=== PATIENT | female | born 1980 | race Caucasian/White ===

== ENCOUNTER 2017-02-06 08:57 | Emergency (ER) | payer MEDICAID ==
[~2017-02-06] VITALS: Ht 157.5 cm; Wt 118.8 kg
[2017-02-06 09:59] LABS: BASOPHIL % 0.3 % (0-2); PLATELET COUNT 175 x10^3mcL (130-400)
[2017-02-06 10:36] LABS: UA SPECIFIC GRAVITY >=1.030 (1.005-1.035); microscopic required? YES
[2017-02-06 10:37] LABS: urine erythrocyte 1+ (NEGATIVE)
[2017-02-06 10:52] LABS: CALCIUM 8.7 mg/dL (8.5-10.1); CARBON DIOXIDE 26.8 mmol/L (21-32); CHLORIDE SERUM 106 mmol/L (98-107); CREATININE SERUM 0.5 mg/dL (0.6-1.0); GFR1 > 60 mL/min; GLUCOSE SERUM 88 mg/dL (74-106); POTASSIUM SERUM 3.4 mmol/L (3.5-5.1); SODIUM SERUM 139 mmol/L (136-145)
[2017-02-06 10:56] LABS: ALBUMIN 3.4 g/dL (3.4-5.0); ALKALINE PHOSPHATASE 57 U/L (46-116); ALT/SGPT 17 U/L (14-59); AMYLASE 31 U/L (25-115); AST/SGOT 13 U/L (15-37); BILIRUBIN TOTAL 0.35 mg/dL (0.20-1.00); LIPASE 126 IU/L (73-393); TOTAL PROTEIN, SERUM 7.5 g/dL (6.4-8.2)
[2017-02-06 12:35] VITALS: BP 141/96
== END 2017-02-06 12:35 | disposition home or self-care (01) ==
LOC: ED 08:57
PROVIDERS: Emergency Medicine Emergency Medical Services
DX: N30.90 Cystitis, unspecified without hematuria (principal); Z97.5 Presence of (intrauterine) contraceptive device
CPT/HCPCS: 36415; Q0092

== ENCOUNTER 2017-09-24 11:42 | Emergency (ER) | payer MEDICAID ==
[~2017-09-24] VITALS: Ht 157.5 cm; Wt 118.8 kg
[2017-09-24 11:48] VITALS: Ht 157.5 cm; Wt 118.8 kg
[2017-09-24 14:02] VITALS: BP 133/100
== END 2017-09-24 14:02 | disposition home or self-care (01) ==
LOC: ED 11:42
DX: J06.9 Acute upper respiratory infection, unspecified (principal)
CPT/HCPCS: Q0092